=== PATIENT | male | born 1980 | race Caucasian/White ===

== ENCOUNTER 2018-12-16 21:46 | Inpatient (IN) | payer SELFPAY ==
--- NOTE | 2018-12-16 22:21 | ED ---
Medical Screening - HPI Summary HPI Summary: Patient brought 941 by PD for rambling speech and flight of ideas. Patient has been sought by police for stalking females students on [facility] 2 weeks. Patient is homeless, living in vehicle. Patient is alert and oriented. Denies any symptoms of illness, injury or pain. Denies medical history. Denies EtOH or recreational drug use. - History of Current Complaint Chief Complaint: EDMentalHealth Stated Complaint: 941, MHE PER EMS Time Seen by Provider: 12/16/18 22:11 Severity: moderate PMH/Surg Hx/FS Hx/Imm Hx Endocrine/Hematology History: Denies: Hx Anticoagulant Therapy Cardiovascular History: Denies: Hx Pacemaker/ICD History: Denies: Hx Dialysis Sensory History: Denies: Hx Legally Blind Opthamlomology History: Denies: Hx Legally Blind EENT History: Denies: Hx Deafness Infectious Disease History: Unable to Obtain/Confirm Infectious Disease History: Denies: Traveled Outside the US in Last 30 Days - Family History Known Family History: Positive: Unknown - Social History Alcohol Use: None Hx Substance Use: No Hx Tobacco Use: No Review of Systems Constitutional: Negative Eyes: Negative ENT: Negative Cardiovascular: Negative Respiratory: Negative Gastrointestinal: Negative Genitourinary: Negative Musculoskeletal: Negative Skin: Negative Neurological: Negative Positive: Other All Other Systems Reviewed And Are Negative: Yes Physical Exam Triage Information Reviewed: Yes Vital Signs On Initial Exam: Initial Vitals Temp Pulse Resp BP Pulse Ox 98.3 F 112 17 156/88 96 12/16/18 22:05 12/16/18 22:05 12/16/18 22:05 12/16/18 22:05 12/16/18 22:05 Vital Signs Reviewed: Yes Appearance: Positive: Well-Appearing Skin: Positive: Warm Head/Face: Positive: Normal Head/Face Inspection Eyes: Positive: Normal Neck: Positive: Supple Respiratory/Lung Sounds: Positive: Clear to Auscultation Cardiovascular: Positive: Normal Abdomen Description: Positive: Nontender Musculoskeletal: Positive: Normal Neurological: Positive: Normal Psychiatric: Positive: Other AVPU Assessment: Alert - Roscoe Coma Scale Best Eye Response: 4 - Spontaneous Best Motor Response: 6 - Obeys Commands Best Verbal Response: 5 - Oriented Coma Scale Total: 15 Diagnostics - Vital Signs Vital Signs Temp Pulse Resp BP Pulse Ox 12/16/18 22:05 98.3 F 112 17 156/88 96 - Laboratory Result Diagrams: 12/16/18 22:23 12/16/18 22:23 Lab Statement: Any lab studies that have been ordered have been reviewed, and results considered in the medical decision making process. Course/Dx - Course Course Of Treatment: Patient brought 941 by PD for rambling speech and flight of ideas. Patient has been sought by police for stalking females students on [facility] 2 weeks. Patient is homeless, living in vehicle. Patient is alert and oriented. Denies any symptoms of illness, injury or pain. Denies medical history. Denies EtOH or recreational drug use. Vital signs within normal limits. Potassium 3.2. Labs otherwise unremarkable. Mental health evaluation per Dr. Arias recommends involuntary admission for bipolar disorder. - Diagnoses Provider Diagnoses: Bipolar disorder Discharge - Sign-Out/Discharge Documenting (check all that apply): Patient Departure Patient Received Moderate/Deep Sedation with Procedure: No - Discharge Plan Condition: Fair [facility] [place]: No Primary Care Phys,NOPCP [Primary Care Provider] - - Billing Disposition and Condition Condition: FAIR [place]position[place] [facility] [place]
[2018-12-16 22:27] LABS: Urine Appearance Cloudy; Urine Bacteria Absent (Absent); Urine Bilirubin Negative (Negative); Urine Blood Negative (Negative); Urine Color Amber; Urine Glucose Negative (Negative); Urine Ketones 2+ (Negative); Urine Nitrite Negative (Negative); Urine Protein 2+(100 mg/dL) (Negative); Urine Red Blood Cell 1+(3-5/hpf) (Absent); Urine Specific Gravity 1.031 (1.010-1.030); Urine Urobilinogen Positive (Negative); Urine White Blood Cell Trace(0-5/hpf) (Absent)
[2018-12-16 22:30] LABS: ABS Basophils 0.1 10^3/ul (0-0.2); ABS Eosinophils 0.3 10^3/ul (0-0.6); ABS Lymphocytes 1.8 10^3/ul (1.0-4.8); ABS Monocytes 0.6 10^3/ul (0-0.8); Hematocrit 43 % (42-52); Hemoglobin 14.9 g/dL (14.0-18.0); Mean Corpuscular HGB Conc 35 g/dL (31-36); Mean Corpuscular Hemoglobin 29 pg (27-31); Mean Corpuscular Volume 84 fL (80-94); Mean Platelet Volume 10.6 fL (7.4-10.4); Platelet Count 223 10^3/uL (150-450); Red Blood Count 5.11 10^6 /uL (4.18-5.48); Red Cell Distribution Width 14 % (10-15); White Blood Count 5.8 10^3/uL (3.5-10.8)
[2018-12-16 22:41] LABS: Urine Benzodiazepine Screen None Detected (None Detect); Urine Opiates Screen None Detected (None Detect)
[2018-12-16 22:46] LABS: ALT 17 U/L (7-52); AST 27 U/L (13-39); Albumin 4.8 g/dL (3.2-5.2); Albumin/Globulin Ratio 1.8 (1-3); Alkaline Phosphatase 78 U/L (34-104); Anion Gap 13 mmol/L (2-11); BUN/Creatinine Ratio 10.5 (8-20); Blood Urea Nitrogen 10 mg/dL (6-24); CO2 Carbon Dioxide 25 mmol/L (22-32); Calcium 9.7 mg/dL (8.6-10.3); Chloride 100 mmol/L (101-111); EGFR African American 107.9 (>60); EGFR Non-African American 89.2 (>60); Globulin 2.7 g/dL (2-4); Glucose 123 mg/dL (70-100); Potassium 3.2 mmol/L (3.5-5.0); Sodium 138 mmol/L (135-145); Total Protein 7.5 g/dL (6.4-8.9)
[2018-12-16 22:52] LABS: Acetaminophen < 15 mcg/mL; Alcohol < 10 mg/dL (<10); Salicylate < 2.50 mg/dL (<30)
[2018-12-16 22:58] LABS: Eosinophil % 4.5 %; Lymphocyte % 32.1 %; Nucleated Red Blood Cells % 0.1
[2018-12-16 23:06] LABS: TSH (Thyroid Stimulating Horm) 2.63 mcIU/mL (0.34-5.60)
[2018-12-16] MEDS ORDERED: Potassium Chlor TAB* 20 MEQ TAB.ER PO ONE (23:27)
[2018-12-17] MEDS ORDERED: Acetaminophen TAB* 325 MG PO PRN (04:20)
[2018-12-17] MEDS ORDERED: Al Hydrox/Mg Hydrox/Simet LIQ* 30 ML UDC PO PRN (04:21)
[2018-12-17] MEDS: Multivitamins/Minerals TAB PO SCH (09:20)
--- NOTE | 2018-12-17 15:45 | HP ---
HISTORY AND PHYSICAL: DATE OF ADMISSION: 12/17/18 PROVIDER: Vikki Stoddard NP, in Psychiatry. SUPERVISING PHYSICIAN: Gustavo Pabon MD * (DICTATED BY VIKKI STODDARD NP) JUSTIFICATION FOR ADMISSION: The patient is in need of 24-hour supervision and care secondary to gross disorganization. CHIEF COMPLAINT: "I've been touring the [employer]. I'm trying to find a PhD program I can sink my teeth into." HISTORY OF PRESENT ILLNESS: The patient is a 38-year-old single white male with some psychiatric history that he is not forthcoming about who arrives brought in by law enforcement and is here on a 9.39 status after accusations of stalking and delusional thoughts of grandeur, hyperreligiosity, and hypersexuality. Junior states he has been in [place] since September. 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 He states his next stop is [facility] and then the [facility]. He would really like to leave the hospital and leave [place] as he understands he is not wanted at [employer]. He believes that he had a beer at [employer] and he does not understand why he was chased after to get him to leave [employer] and then arrested and brought here. Junior is very focused on his education. He states he went to a university in [place], perhaps [employer], where he got his undergraduate degree in finance. He states he then went to [employer] where he took 2 semesters' worth of courses and then went to [employer] where he took 3 days' worth of courses. 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 He has lately been sleeping in his car and spending a good part of his time reading. He states he is interested in medical topics as well as science and engineering. He asserts he has master's degrees and a PhD, but cannot say from where or what they are in. Junior is clearly delusional. He has no insight into his reason for being here and he is considering filing a court request to stop him from being kept here at the hospital. PAST PSYCHIATRIC HISTORY: There is no evidence available that he has been admitted before or where he might have been admitted. It appears that he travels quite a bit. There is a doctor, Dr. Chavarria in [facility], who is a psychiatrist that he has been seeing, but he does not say for what reason. It sounded as though he believes it is for psychological testing. He denies having ever been on psychiatric medications. He denies ever needing them. PAST MEDICAL HISTORY: He denies ever having had any problems. He does on his right hand appear to have eczema or some kind of psoriasis or healing castro that he says he got as a cook seafood, which is another one of the part-time jobs he mentions. FAMILY HISTORY: He states there is no family history of mental illness in his family. His father, he states, has a problem with alcohol. SUBSTANCE ABUSE HISTORY: It is not clear what substances he might be taking. His laboratory toxicology screen is negative. SOCIAL HISTORY: He is from [place]. He has 2 brothers. He has an apartment in [place]. He says he also has office space there. He is unclear about what his education is. 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 His education experiences appear to be delusional, although he does have a good vocabulary and appears to be an intelligent person. His employment history is unclear. 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 REVIEW OF SYSTEMS: The patient reports feeling alert. He denies shortness of breath, heat or cold intolerance, chest pain or abdominal pain. He denies neurological symptoms. He denies fevers or changes in weight. PHYSICAL EXAMINATION APPEARANCE: Well appearing. VITAL SIGNS: On 12/17/18 at 10:49, temperature was 98.4, pulse 95, respirations 16, O2 sat on room air is 99%, blood pressure is 123/85. HEENT: Head and face: Normal head and face inspection. Eyes: Normal. NECK: Supple. RESPIRATORY: Lung sounds clear to auscultation. CARDIOVASCULAR: Normal. ABDOMEN DESCRIPTION: Nontender. MUSCULOSKELETAL: Normal. NEUROLOGICAL: Normal. PSYCHIATRIC: Paranoid. SKIN: Warm. LABORATORY DATA: Most laboratory data are within normal limits. Exceptions include MPV high at 10.6, potassium low at 3.2, chloride low at 100, anion gap high at 13, glucose high at 123, total bilirubin 1.70. Urine appears to be quite concentrated with a urine specific gravity of 1.031, protein present at 2+ , ketones present at 2+, urobilinogen positive, urine rbc's positive at +1, hyaline casts present. Toxicology screen is negative. MENTAL STATUS EXAMINATION: Junior is 5 feet 10 inches tall. He weighs 170 pounds. He has short hair and blue eyes and is wearing his own clothes including a sleeveless green T-shirt. He is quite stiff in posture. His eye contact is intense. He is cooperative and outwardly calm. He does appear to be hypervigilant about his own behavior. His speech is of normal rate and volume. His tone is vaguely hostile. He has some pressured speech. He is euthymic. His affect is constricted. His thought processes are rapid with flight of ideas. His thought content contains delusions of religiosity, sexuality, and grandeur. He is neither homicidal nor suicidal, he states. He does not endorse hallucinations. His insight is very poor. His judgment is fair. He is alert and oriented x4. DIAGNOSES: 1. Delusional disorder. 2. Rule out shaka with psychotic features. IMPRESSION: Junior is a 38-year-old man who comes to the hospital by law enforcement and is here on an involuntary status following bizarre behavior at [employer] where he was asked to leave and then police were called and he was taken away. PLAN: The patient is being admitted to the adult behavioral health unit and placed on q.15-minute checks for his own safety. The patient is encouraged to participate in supportive milieu, individual and group therapies. Estimated length of stay is 5 to 7 days. We did ask him for an MMPI for diagnostic clarification and he declined. I will offer him psychological testing with Dr. Flower as well. We will offer him medications, such as Zyprexa ODT. At this point, he does not want medications and does state that he does not need them. Discharge planning will likely include family involvement, and hopefully we will find his outpatient providers. VIKKI STODDARD, DIRECTOR AUTOMOTIVE [id number]/[facility] #: [id number] [id number]
[2018-12-18] MEDS: Multivitamins/Minerals TAB PO SCH (09:00)
[2018-12-18] MEDS: OLANzapine TAB*ODT* 10 MG TAB PO SCH ×2 (11:41→21:41)
--- NOTE | 2018-12-18 15:45 | PN ---
Subjective - Subjective Date of Service: 12/18/18 Service Type: 96796 Hosp care 25 min moderate complexity Subjective: Cindy is currently living out of his car since September in [place] and is currently diagnosed with delusional disorder with a rule out of bipolar 1 disorder current episode manic. He came to the hospital from [place] [employer] who had been looking for him for at least a week related to his being a nuisance and related to strange behavior. He is now unwelcome on the campus. He is confirmed to never have been enrolled in any program of any type at [place]. He was felt to be potentially dangerous by [place] [employer]. 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 I have ordered Zyprexa 10 mg ODT BID for him. He has so far declined to take medication. He has met with Julia Hein yesterday, but calls her your in-house atka; he did eventually enter a court request. He would like to have a physician as his prescriber. I allowed him to use the computer today to get information about who he is. He does not have his phone and it doesn't have minutes, so he could not confirm his identity to [place] and therefore could not use his email to get names and information. Also, his backpack was not present, so he could not get his "Rolodex." Objective - General Observations Appearance: Neat, Well Groomed Stature: Overweight Posture: WNL Eye Contact: Intense Behavior/Activity: Accelerated - Interaction Observations Attitude Towards Examiner: Uncooperative, Defensive, Mistrustful, Dismissive Stated Mood: Euthymic, Anxious Affect: Blunted Speech Pattern/Tone: Clear Thought Process: Goal Directed, Circumstantial, Racing Perception: WNL Thought Content: Paranoid, Grandiose Hallucination Type: Denies Delusion Type: Denies, Reference, Grandeur - Cognitive Function Orientation: A&O x 4 Level of Consciousness: Awake, Alert Cognition: Impaired Memory, Impaired Attention/Concentration, Impaired Ability to Abstract Estimated Intelligence: Normal Insight: Difficulty Acknowledging Presence of Psyciatric Problems Judgment Within Normal Limits: No Ability to Make Reasonable Decisions: Serverely Impaired - Medication Compliance Cooperative with Inpatient Medication Regimen: No - Group Participation Participates in Group Activities: Partial Assessment - Assessment Merits Inpatient Hospitalization: For Immediate Safety Inpatient DSM-V Dx: F22 Clinical Impression: Cindy Albert, 38, single, white male is currently living out of his car since September in [place] and is currently diagnosed with delusional disorder with a rule out of bipolar 1 disorder current episode manic. He came to the hospital from [place] [employer] who had been looking for him for at least a week related to his being a nuisance and related to strange behavior. He is now unwelcome on the campus, having been told by the police that he is persona non grata. He is confirmed to never have been enrolled in any program of any type at [facility]. Plan - Plan Treatment Plan: Name: CINDY ALBERT Birthdate: 1980 [id number] Continue to offer Zyprexa ODT 10 mg BID Prepare for treatment over objection, 2PC status, possibly retention Continued Medication Management: Different Medication Medications: Current Medications Acetaminophen (Tylenol Tab*) 650 mg PO Q4H PRN PRN Reason: PAIN; OR TEMP >101 Al Hydrox/Mg Hydrox/Simethicone (Maalox Plus*) 30 ml PO Q4H PRN PRN Reason: INDIGESTION Multivitamins/Minerals (Theragran/Minerals Tab*) 1 tab PO DAILY [facility] Last Admin: 12/18/18 09:00 Dose: Not Given Olanzapine (Zyprexa *Odt*) 10 mg PO BID [facility] Last Admin: 12/18/18 11:41 Dose: Not Given
[2018-12-19] MEDS: OLANzapine TAB*ODT* 10 MG TAB PO SCH ×2 (08:03→19:45)
[2018-12-19] MEDS: Multivitamins/Minerals TAB PO SCH (08:03)
--- NOTE | 2018-12-19 14:48 | PN ---
Subjective - Subjective Date of Service: 12/19/18 Service Type: [id number] Hosp care 15 min low complexity Subjective: I found Bill in bed, fully and neatly dressed. I introduced myself as Dr Elena. He reported he had a court hearing next week. He declined to sit and talk with me. He denied any acute safety concerns, reporting "I'm just fine." Objective - General Observations Appearance: Neat Appears Stated Age: Yes Stature: WNL Posture: WNL Eye Contact: Average Behavior/Activity: Peculiar - Interaction Observations Attitude Towards Examiner: Evasive Stated Mood: Euthymic Speech Pattern/Tone: Clear, Normal Volume - Cognitive Function Level of Consciousness: Awake, Alert - Medication Compliance Cooperative with Inpatient Medication Regimen: No - Group Participation Participates in Group Activities: No Assessment - Assessment Merits Inpatient Hospitalization: For Immediate Safety, For Stabilization, To Initiate Treatment, For Discharge Planning, Pending Safe DC Plan Inpatient DSM-V Dx: F22 Clinical Impression: Cindy Albert, 38, single, white male is currently living out of his car since September in [place] and is currently diagnosed with delusional disorder with a rule out of bipolar 1 disorder current episode manic. He came to the hospital from [place] [employer] who had been looking for him for at least a week related to his being a nuisance and related to strange behavior. He is now unwelcome on the campus, having been told by the police that he is persona non grata. He is confirmed to never have been enrolled in any program of any type at [facility]. Plan - Plan Treatment Plan: Name: ICNDY ALBERT Birthdate: 1980 [id number] Continue to offer Zyprexa ODT 10 mg BID Prepare for treatment over objection, 2PC status, possibly retention Medications: Current Medications Acetaminophen (Tylenol Tab*) 650 mg PO Q4H PRN PRN Reason: PAIN; OR TEMP >101 Al Hydrox/Mg Hydrox/Simethicone (Maalox Plus*) 30 ml PO Q4H PRN PRN Reason: INDIGESTION Multivitamins/Minerals (Theragran/Minerals Tab*) 1 tab PO DAILY [facility] Last Admin: 12/19/18 08:03 Dose: Not Given Olanzapine (Zyprexa *Odt*) 10 mg PO BID [facility] Last Admin: 08/03/19 08:03 Dose: Not Given - Discharge Plan Discharge Plan: Outpatient Follow Up
[2018-12-20] MEDS: OLANzapine TAB*ODT* 10 MG TAB PO SCH ×2 (09:07→21:50)
[2018-12-20] MEDS: Multivitamins/Minerals TAB PO SCH (09:07)
[2018-12-21] MEDS: OLANzapine TAB*ODT* 10 MG TAB PO SCH ×2 (09:30→21:01)
[2018-12-21] MEDS: Multivitamins/Minerals TAB PO SCH (09:30)
--- NOTE | 2018-12-21 16:10 | PN ---
Subjective - Subjective Date of Service: 12/21/18 Service Type: 07708 Hosp care 15 min low complexity Subjective: I meet Cindy in his room. He requests a supervisor public health nursing and would like his due process to commence. I informed him that he would not receive a supervisor public health nursing as he was not involved in a criminal proceeding. I did show him where to get Julia Hein's number and that he had already spoken to her but was welcome to call at any time. Objective - General Observations Appearance: Neat Appears Stated Age: Yes Stature: WNL Posture: WNL Eye Contact: Intermittent Behavior/Activity: Peculiar - Interaction Observations Attitude Towards Examiner: Anxious, Dismissive Stated Mood: Dysphoric, Anxious Affect: Restricted Speech Pattern/Tone: Clear Thought Process: Coherent, Loose Associations, Racing Perception: WNL Thought Content: Obsessional, Paranoid, Grandiose Thought Process: Lethality: Paranoid Ideation Hallucination Type: Denies Delusion Type: Denies, Reference, Grandeur - Cognitive Function Orientation: A&O x 4 Level of Consciousness: Awake, Alert, Appropriate Cognition: WNL, Impaired Ability to Abstract Estimated Intelligence: Normal Insight: Difficulty Acknowledging Presence of Psyciatric Problems Judgment Within Normal Limits: No Ability to Make Reasonable Decisions: Serverely Impaired - Medication Compliance Cooperative with Inpatient Medication Regimen: No - Group Participation Participates in Group Activities: No Assessment - Assessment Merits Inpatient Hospitalization: For Immediate Safety Inpatient DSM-V Dx: F22 Clinical Impression: Cindy Albert, 38, single, white male is currently living out of his car since September in [place] and is currently diagnosed with delusional disorder with a rule out of bipolar 1 disorder current episode manic. He came to the hospital from [place] [employer] who had been looking for him for at least a week related to his being a nuisance and related to strange behavior. He is now unwelcome on the campus, having been told by the police that he is persona non grata. He is confirmed to never have been enrolled in any program of any type at [place]. Plan - Plan Treatment Plan: Name: CINDY ALBERT Birthdate: 1980 [id number] Continue to offer Zyprexa ODT 10 mg BID Prepare for treatment over objection, 2PC status, possibly retention 12/21/18 Switch from Zyprexa to Invega in preparation for injectable antipsychotic Sustenna Prepare for court (Friday12/23/18 at 2 pm) Continued Medication Management: Different Medication Medications: Current Medications Acetaminophen (Tylenol Tab*) 650 mg PO Q4H PRN PRN Reason: PAIN; OR TEMP >101 Al Hydrox/Mg Hydrox/Simethicone (Maalox Plus*) 30 ml PO Q4H PRN PRN Reason: INDIGESTION Multivitamins/Minerals (Theragran/Minerals Tab*) 1 tab PO DAILY [facility] Last Admin: 12/21/18 09:30 Dose: Not Given Olanzapine (Zyprexa *Odt*) 10 mg PO BID [facility] Last Admin: 12/21/18 09:30 Dose: Not Given
[2018-12-22] MEDS: Multivitamins/Minerals TAB PO SCH (11:55)
[2018-12-22] MEDS: OLANzapine TAB*ODT* 10 MG TAB PO SCH ×2 (11:55→21:27)
--- NOTE | 2018-12-22 16:12 | PN ---
Subjective - Subjective Date of Service: 12/22/18 Service Type: [id number] Hosp care 15 min low complexity Subjective: Cindy was quiet today. He ate alone and was curious about how to leave the hospital. His court date is set for tomorrow. Objective - General Observations Appearance: Neat Appears Stated Age: Yes Stature: WNL Posture: WNL Eye Contact: Intermittent Behavior/Activity: Peculiar - Interaction Observations Attitude Towards Examiner: Uncooperative, Anxious, Confused, Defensive Stated Mood: Dysphoric, Anxious Affect: Restricted Speech Pattern/Tone: Clear Thought Process: Goal Directed Perception: WNL Thought Content: Preoccupation/Ruminations, Obsessional, Paranoid Thought Process: Lethality: Paranoid Ideation Hallucination Type: None Delusion Type: Denies, Reference, Grandeur - Cognitive Function Orientation: A&O x 4 Level of Consciousness: Awake, Alert, Appropriate Cognition: Impaired Cognition, Impaired Ability to Abstract, Impaired Fund of Knowledge Estimated Intelligence: Normal Insight: Difficulty Acknowledging Presence of Psyciatric Problems Judgment Within Normal Limits: No Ability to Make Reasonable Decisions: Serverely Impaired - Medication Compliance Cooperative with Inpatient Medication Regimen: No - Group Participation Participates in Group Activities: No Assessment - Assessment Merits Inpatient Hospitalization: For Immediate Safety Inpatient DSM-V Dx: F22 Clinical Impression: Cindy Albert, 38, single, white male is currently living out of his car since September in [place] and is currently diagnosed with delusional disorder with a rule out of bipolar 1 disorder current episode manic. He came to the hospital from [place] [employer] who had been looking for him for at least a week related to his being a nuisance and related to strange behavior. He is now unwelcome on the campus, having been told by the police that he is persona non grata. He is confirmed to never have been enrolled in any program of any type at [facility]. Plan - Plan Treatment Plan: Name: CINDY ALBERT Birthdate: 1980 [id number] Continue to offer Zyprexa ODT 10 mg BID Prepare for treatment over objection, 2PC status, possibly retention 12/21/18 Switch from Zyprexa to Invega in preparation for injectable antipsychotic Sustenna Prepare for court (Friday12/23/18 at 2 pm) 12/22/[address] Continue to pursue appropriate medication. Meet with Dr. Perez for assessment. Continued Medication Management: Different Medication Medications: Current Medications Acetaminophen (Tylenol Tab*) 650 mg PO Q4H PRN PRN Reason: PAIN; OR TEMP >101 Al Hydrox/Mg Hydrox/Simethicone (Maalox Plus*) 30 ml PO Q4H PRN PRN Reason: INDIGESTION Multivitamins/Minerals (Theragran/Minerals Tab*) 1 tab PO DAILY [facility] Last Admin: 12/22/18 11:55 Dose: Not Given Olanzapine (Zyprexa *Odt*) 10 mg PO BID [facility] Last Admin: 12/22/18 11:55 Dose: Not Given
[2018-12-23] MEDS: Multivitamins/Minerals TAB PO SCH (09:26)
[2018-12-23] MEDS: OLANzapine TAB*ODT* 10 MG TAB PO SCH ×2 (09:26→23:08)
--- NOTE | 2018-12-23 11:45 | PN ---
Subjective - Subjective Date of Service: 12/23/18 Service Type: [id number] Hosp care 15 min low complexity Subjective: Cindy's care is taken over today from the NPP, Vikki Stoddard due to his continued refusal to participate in any form of treatment. After introducing myself and describing the nature of this afternoon's court hearing I get to hear his account of the situation leading to his hospitalization. He is clearly guarded and paranoid, giving only brief, uninformative responses to my questions. He insists that he was in fact enrolled as a student at [employer] and "participating in at least three symposia." He denies the account of the [facility] that he was stalking or menacing anyone on campus. 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 He becomes irritable and hyperverbal once confronted on the unlikelihood of these claims. He makes it clear that he will not accept psychiatric medication, although he notably hesitates when asked whether he has been psychiatrically admitted in the past. He refuses to go over the suggested medication list we are submitting to the court for the T.O.O. process. 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...I should be furnished with my own doctor and workers compensation defense attorney." Objective - General Observations Appearance: Disheveled, Malodorous Appears Stated Age: Yes Stature: Short Posture: Tense Eye Contact: Intense Behavior/Activity: Peculiar - Interaction Observations Attitude Towards Examiner: Defensive, Evasive Stated Mood: Dysphoric Affect: Restricted Speech Pattern/Tone: Perseverating Thought Process: Incoherent Thought Content: Paranoid, Grandiose Thought Process: Lethality: Paranoid Ideation Hallucination Type: None Delusion Type: Persecution, Grandeur - Cognitive Function Orientation: A&O x 4 Level of Consciousness: Awake, Alert, Appropriate Cognition: WNL Estimated Intelligence: Normal Insight: Difficulty Acknowledging Presence of Psyciatric Problems Judgment Within Normal Limits: No Ability to Make Reasonable Decisions: Serverely Impaired - Medication Compliance Cooperative with Inpatient Medication Regimen: No - Group Participation Participates in Group Activities: No Assessment - Assessment Merits Inpatient Hospitalization: For Immediate Safety, For Stabilization Inpatient DSM-V Dx: F22 Clinical Impression: Cindy Albert, 38, single, white male is currently living out of his car since September in [place] and is currently diagnosed with delusional disorder with a rule out of bipolar 1 disorder current episode manic. He came to the hospital from [employer] who had been looking for him for at least a week related to his being a nuisance and related to strange behavior. He is now unwelcome on the campus, having been told by the police that he is persona non grata. He is confirmed to never have been enrolled in any program of any type at [employer]. Plan - Plan Treatment Plan: Name: CINDY ALBERT Birthdate: 1980 [id number] Continue to offer Zyprexa ODT 10 mg BID Prepare for treatment over objection, 2PC status, possibly retention 12/21/18 Switch from Zyprexa to Invega in preparation for injectable antipsychotic [place] Prepare for court (Friday12/23/18 at 2 pm) 12/22/[address] Continue to pursue appropriate medication. Meet with Dr. Perez for assessment. Continued Medication Management: Start Medication Medications: Current Medications Acetaminophen (Tylenol Tab*) 650 mg PO Q4H PRN PRN Reason: PAIN; OR TEMP >101 Al Hydrox/Mg Hydrox/Simethicone (Maalox Plus*) 30 ml PO Q4H PRN PRN Reason: INDIGESTION Multivitamins/Minerals (Theragran/Minerals Tab*) 1 tab PO DAILY [facility] Last Admin: 12/23/18 09:26 Dose: Not Given Olanzapine (Zyprexa *Odt*) 10 mg PO BID [facility] Last Admin: 12/23/18 09:26 Dose: Not Given - Discharge Plan Discharge Plan: Inpatient Hospitalization
[2018-12-24] MEDS: Multivitamins/Minerals TAB PO SCH (10:36)
[2018-12-24] MEDS: OLANzapine TAB*ODT* 10 MG TAB PO SCH (10:36)
[2018-12-24] MEDS ORDERED: Haloperidol INJ IV/IM* 5 MG/ML AMP IM PRN (13:16)
[2018-12-24] MEDS: Paliperidone ER TAB* 6 MG TAB.ER PO SCH (13:40)
--- NOTE | 2018-12-24 14:10 | PN ---
Subjective - Subjective Date of Service: 12/24/18 Service Type: 37626 Hosp care 15 min low complexity Subjective: Cindy requests a new psychiatrist today. 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 Yeah, I'm really offended by that. I would like to know where you went to medical school. And I need you to contact [facility] to get a second opinion on a diagnosis." Cindy states that he is allergic to all antipsychotics because they cause sedation, weight gain and skin hives. Ultimately he agrees to an oral dose of 6mg paliperidone while trying to negotiate his way out of the hospital. Social work informs me that they found a letter in his backpack pertaining to a psychiatric leave of absence from [facility] in 2008, however, Cindy refuses to answer any questions about this, stating "Yeah, it' s my HIPAA right not to answer any questions about that unless my private storage center manager is present. Objective - General Observations Appearance: Malodorous, Unkempt Appears Stated Age: No Stature: Short Posture: WNL Eye Contact: Intense Behavior/Activity: Peculiar - Interaction Observations Attitude Towards Examiner: Defensive Stated Mood: Dysphoric Affect: Flat Speech Pattern/Tone: Clear Thought Process: Over Inclusive Thought Content: Paranoid, Grandiose Thought Process: Lethality: Paranoid Ideation Hallucination Type: None Delusion Type: Persecution, Grandeur - Cognitive Function Orientation: A&O x 4 Level of Consciousness: Awake Cognition: WNL Estimated Intelligence: Normal Insight: WNL Judgment Within Normal Limits: Yes - Medication Compliance Cooperative with Inpatient Medication Regimen: No - Group Participation Participates in Group Activities: No Assessment - Assessment Merits Inpatient Hospitalization: For Immediate Safety, For Stabilization Inpatient DSM-V Dx: F22 Clinical Impression: Cindy Albert, 38, single, white male is currently living out of his car since September in [place] and is currently diagnosed with delusional disorder with a rule out of bipolar 1 disorder current episode manic. He came to the hospital from [place] Police who had been looking for him for at least a week related to his being a nuisance and related to strange behavior. He is now unwelcome on the campus, having been told by the police that he is persona non grata. He is confirmed to never have been enrolled in any program of any type at [place]. Plan - Plan Treatment Plan: Name: CINDY ALBERT Birthdate: 1980 [id number] We have initiated paliperidone 6mg PO qday per court order. Will consider SAMUEL version of same compound. Continue inpatient treatment and try to find collateral information that would allow us to discharge plan. Continued Medication Management: Start Medication Medications: Current Medications Acetaminophen (Tylenol Tab*) 650 mg PO Q4H PRN PRN Reason: PAIN; OR TEMP >101 Al Hydrox/Mg Hydrox/Simethicone (Maalox Plus*) 30 ml PO Q4H PRN PRN Reason: INDIGESTION Haloperidol Lactate (Haldol Inj Iv/Im*) 5 mg IM DAILY PRN PRN Reason: if patient refuses invega Multivitamins/Minerals (Theragran/Minerals Tab*) 1 tab PO DAILY [facility] Last Admin: 12/24/18 10:36 Dose: Not Given Paliperidone (Invega Er Tab*) 6 mg PO DAILY [facility] Last Admin: 12/24/18 13:40 Dose: 6 mg - Discharge Plan Discharge Plan: Inpatient Hospitalization
[2018-12-25] MEDS: Paliperidone ER TAB* 6 MG TAB.ER PO SCH (08:55)
[2018-12-25] MEDS: Multivitamins/Minerals TAB PO SCH (08:56)
--- NOTE | 2018-12-25 15:06 | PN ---
Subjective - Subjective Date of Service: 12/25/18 Service Type: 85024 Hosp care 15 min low complexity Subjective: Cindy reports that the medicine is making him "groggy" but he has no other ill effects. He continues to have an odd, flat affect with a stiff posture and intense stare. He reports that he was staying at a youth hostel on the [facility] called the "[facility]" on [facility]. He also says that he has a job at [employer] and has permission to park his car within 200ft of any [employer] in the [place]. 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 Objective - General Observations Appearance: Disheveled Appears Stated Age: No Stature: Short Posture: Rigid, Tense Eye Contact: Intense Behavior/Activity: Peculiar - Interaction Observations Attitude Towards Examiner: Cooperative Stated Mood: Anxious Affect: Flat Speech Pattern/Tone: Clear Thought Process: Coherent Thought Content: Paranoid, Grandiose Thought Process: Lethality: Paranoid Ideation Hallucination Type: None Delusion Type: Persecution, Grandeur - Cognitive Function Orientation: A&O x 4 Level of Consciousness: Awake, Alert Cognition: WNL Estimated Intelligence: Normal Insight: Difficulty Acknowledging Presence of Psyciatric Problems Judgment Within Normal Limits: No Ability to Make Reasonable Decisions: Serverely Impaired - Medication Compliance Cooperative with Inpatient Medication Regimen: Yes - Group Participation Participates in Group Activities: No Assessment - Assessment Merits Inpatient Hospitalization: For Immediate Safety, For Stabilization Inpatient DSM-V Dx: F22 Clinical Impression: Cindy Albert, 38, single, white male is currently living out of his car since September in [place] and is currently diagnosed with delusional disorder with a rule out of bipolar 1 disorder current episode manic. He came to the hospital from [place] [employer] who had been looking for him for at least a week related to his being a nuisance and related to strange behavior. He is now unwelcome on the campus, having been told by the police that he is persona non grata. He is confirmed to never have been enrolled in any program of any type at [place]. Plan - Plan Treatment Plan: Name: CINDY ALBERT Birthdate: 1980 [id number] We have initiated paliperidone 6mg PO qday per court order. Will consider SAMUEL version of same compound. Continue inpatient treatment and try to find collateral information that would allow us to discharge plan. Continued Medication Management: Start Medication Medications: Current Medications Acetaminophen (Tylenol Tab*) 650 mg PO Q4H PRN PRN Reason: PAIN; OR TEMP >101 Al Hydrox/Mg Hydrox/Simethicone (Maalox Plus*) 30 ml PO Q4H PRN PRN Reason: INDIGESTION Haloperidol Lactate (Haldol Inj Iv/Im*) 5 mg IM DAILY PRN PRN Reason: if patient refuses invega Paliperidone (Invega Er Tab*) 6 mg PO DAILY [facility] Last Admin: 12/25/18 08:55 Dose: 6 mg - Discharge Plan Discharge Plan: Inpatient Hospitalization
[2018-12-26] MEDS: Paliperidone ER TAB* 6 MG TAB.ER PO SCH (09:52)
[2018-12-27] MEDS: Paliperidone ER TAB* 6 MG TAB.ER PO SCH (10:43)
[2018-12-28 08:26] LABS: HDL Cholesterol 51.2 mg/dL
[2018-12-28] MEDS: Paliperidone ER TAB* 6 MG TAB.ER PO SCH (10:36)
--- NOTE | 2018-12-28 14:11 | PN ---
Subjective - Subjective Date of Service: 12/28/18 Service Type: [id number] Hosp care 15 min low complexity Subjective: Junior is seen along with inpatient SW Mary Ann Eugenia for follow up. He reports that the medicine makes him a little groggy but he does not seem to be having any further untoward effects. Junior is informed today of the treatment team' s decision to refer him to the [facility] for more intermediate-level inpatient services. He seems to be uncertain of what this entails and needs clarification that it does not involve him being criminally prosecuted. "Well, actually I think I'd rather wait here. I called [facility], which is run by a former professor of law of [facility] [facility]. I'm waiting to hear back from them and I think there's a good chance that they'll just release me from here." CAESAR Bello and I do our best to educate and inform him about his legal options, which would include seeking outside pet adoption counselor. He does not express consent for transfer to a State facility. Staff notes indicate that he remains isolative and uninvolved in unit programming. He still has not given us any collateral contact information for family, nor signed any ROIs for us to speak with them. Objective - General Observations Appearance: Disheveled Appears Stated Age: No Stature: Short Posture: Tense Eye Contact: Average Behavior/Activity: Peculiar - Interaction Observations Attitude Towards Examiner: Defensive Stated Mood: Anxious Affect: Flat Speech Pattern/Tone: Clear Thought Process: Circumstantial Perception: WNL Thought Content: Paranoid, Grandiose Thought Process: Lethality: Paranoid Ideation Hallucination Type: None Delusion Type: Persecution, Grandeur - Cognitive Function Orientation: A&O x 4 Level of Consciousness: Awake, Alert, Appropriate Cognition: WNL Estimated Intelligence: Normal Insight: Difficulty Acknowledging Presence of Psyciatric Problems Judgment Within Normal Limits: No Ability to Make Reasonable Decisions: Serverely Impaired - Medication Compliance Cooperative with Inpatient Medication Regimen: Yes - Group Participation Participates in Group Activities: No Assessment - Assessment Merits Inpatient Hospitalization: For Immediate Safety, For Stabilization Inpatient DSM-V Dx: F22 Clinical Impression: Junior Albert, 38, single, white male is currently living out of his car since September in [place] and is currently diagnosed with delusional disorder with a rule out of bipolar 1 disorder current episode manic. He came to the hospital from [place] who had been looking for him for at least a week related to his being a nuisance and related to strange behavior. He is now unwelcome on the campus, having been told by the police that he is persona non grata. He is confirmed to never have been enrolled in any program of any type at [place]. BSU: Problem List - Patient Problems (1) Delusional disorder Current Visit: Yes Status: Acute Priority: High Code(s): F22 - DELUSIONAL DISORDERS SNOMED Code(s): 51313726 Plan - Plan Treatment Plan: Name: JUNIOR ALBERT Birthdate: 1980 [id number] We have initiated paliperidone 6mg PO qday per court order. Will consider SAMUEL version of same compound. Continue inpatient treatment and try to find collateral information that would allow us to discharge plan. Will initiate referral to [facility]. Continued Medication Management: Start Medication Medications: Current Medications Acetaminophen (Tylenol Tab*) 650 mg PO Q4H PRN PRN Reason: PAIN; OR TEMP >101 Al Hydrox/Mg Hydrox/Simethicone (Maalox Plus*) 30 ml PO Q4H PRN PRN Reason: INDIGESTION Haloperidol Lactate (Haldol Inj Iv/Im*) 5 mg IM DAILY PRN PRN Reason: if patient refuses invega Paliperidone (Invega Er Tab*) 6 mg PO DAILY [facility] Last Admin: 12/28/18 10:36 Dose: 6 mg - Discharge Plan Discharge Plan: Consider Longer Term Tx Lab Results - Lab Results Lab Results: 12/28/18 12/28/18 07:38 07:38 Hemoglobin A1c 5.4 Triglycerides 249 Cholesterol 285 LDL Cholesterol 184 HDL Cholesterol 51.2
[2018-12-29] MEDS: Paliperidone ER TAB* 6 MG TAB.ER PO SCH (09:49)
[2018-12-30] MEDS: Paliperidone ER TAB* 6 MG TAB.ER PO SCH (10:00)
--- NOTE | 2018-12-30 13:10 | PN ---
Subjective - Subjective Date of Service: 12/30/18 Service Type: 74411 Hosp care 15 min low complexity Subjective: Cindy is delusional with stiff, tense posture and an intense, yet vacant, stare. "Yeah, I don't really believe that the [facility] in [place] is necessary. I feel like you guys are really trying to get me to go to [employer] and I'm not really interested in that school." Cindy has been trying to contact various law school faculty at [facility] and hoping they will legally intervene by getting him out of the hospital. He is adherent with oral Invega and seems to be tolerating it well. Objective - General Observations Appearance: Unkempt Appears Stated Age: Yes Stature: Short Posture: Tense Eye Contact: Intense Behavior/Activity: Peculiar - Interaction Observations Attitude Towards Examiner: Cooperative Stated Mood: Anxious Affect: Flat Speech Pattern/Tone: Rambling Thought Process: Tangential Perception: WNL Thought Content: Paranoid, Grandiose Thought Process: Lethality: Paranoid Ideation Hallucination Type: None Delusion Type: Grandeur, Lutheran - Cognitive Function Orientation: A&O x 4 Level of Consciousness: Awake Cognition: WNL Estimated Intelligence: Normal Insight: Difficulty Acknowledging Presence of Psyciatric Problems Judgment Within Normal Limits: No Ability to Make Reasonable Decisions: Serverely Impaired - Medication Compliance Cooperative with Inpatient Medication Regimen: Yes - Group Participation Participates in Group Activities: No Assessment - Assessment Merits Inpatient Hospitalization: For Immediate Safety, For Stabilization Inpatient DSM-V Dx: F22 Clinical Impression: Cindy Albert, 38, single, white male is currently living out of his car since September in [place] and is currently diagnosed with delusional disorder with a rule out of bipolar 1 disorder current episode manic. He came to the hospital from [place] [employer] who had been looking for him for at least a week related to his being a nuisance and related to strange behavior. He is now unwelcome on the campus, having been told by the police that he is persona non grata. He is confirmed to never have been enrolled in any program of any type at [place]. Plan - Plan Treatment Plan: Name: CINDY ALBERT Birthdate: 1980 [id number] We have initiated paliperidone 6mg PO qday per court order. Will consider SAMUEL version of same compound. Continue inpatient treatment and try to find collateral information that would allow us to discharge plan. Will initiate referral to [facility]. Continued Medication Management: Start Medication Medications: Current Medications Acetaminophen (Tylenol Tab*) 650 mg PO Q4H PRN PRN Reason: PAIN; OR TEMP >101 Al Hydrox/Mg Hydrox/Simethicone (Maalox Plus*) 30 ml PO Q4H PRN PRN Reason: INDIGESTION Haloperidol Lactate (Haldol Inj Iv/Im*) 5 mg IM DAILY PRN PRN Reason: if patient refuses invega Paliperidone (Invega Er Tab*) 6 mg PO DAILY [facility] Last Admin: 12/30/18 10:00 Dose: 6 mg - Discharge Plan Discharge Plan: Consider Longer Term Tx Lab Results - Lab Results Lab Results: 12/28/18 12/28/18 07:38 07:38 Hemoglobin A1c 5.4 Triglycerides 249 Cholesterol 285 LDL Cholesterol 184 HDL Cholesterol 51.2
[2018-12-31] MEDS: Paliperidone ER TAB* 6 MG TAB.ER PO SCH (10:30)
--- NOTE | 2018-12-31 14:46 | PN ---
BSU: Group Therapy Note - Service Type Service Type: [id number] Group Psychotherapy - Group Participation Patient Participating in Group: Yes Level of Group Participation: Attentive, Participates When Prompte Relatedness to Group: Defended - Additional Group Comments Group Comments: Will was very attentive throughout the group. Toward the end, when the content became more diffuse, he remained focused and interested and expressed interest verbally rather than simply by appearing to be attentive.
[2019-01-01] MEDS: Paliperidone ER TAB* 6 MG TAB.ER PO SCH (10:47)
--- NOTE | 2019-01-01 14:16 | PN ---
Subjective - Subjective Date of Service: 01/01/19 Service Type: 88512 Hosp care 15 min low complexity Subjective: Cindy remains delusional. He's reached out to multiple different attorneys and old faculty members at various colleges to secure legal assistance for his pending court date next Friday (01/05) for retention. He is taking the medication but remains isolative and guarded about giving us contact information for collateral information sources. Objective - General Observations Appearance: Neat Appears Stated Age: Yes Stature: Short Posture: Rigid Eye Contact: Intense Behavior/Activity: Peculiar - Interaction Observations Attitude Towards Examiner: Defensive Stated Mood: Anxious Affect: Flat Speech Pattern/Tone: Rambling Thought Process: Tangential Thought Content: Paranoid, Grandiose Thought Process: Lethality: Paranoid Ideation Hallucination Type: None Delusion Type: Persecution, Grandeur - Cognitive Function Orientation: A&O x 4 Level of Consciousness: Awake Cognition: WNL Estimated Intelligence: Normal Insight: Difficulty Acknowledging Presence of Psyciatric Problems Judgment Within Normal Limits: No Ability to Make Reasonable Decisions: Serverely Impaired - Medication Compliance Cooperative with Inpatient Medication Regimen: Yes - Group Participation Participates in Group Activities: No Assessment - Assessment Merits Inpatient Hospitalization: For Immediate Safety, For Stabilization Inpatient DSM-V Dx: F22 Clinical Impression: Cindy Albert, 38, single, white male is currently living out of his car since September in [place] and is currently diagnosed with delusional disorder with a rule out of bipolar 1 disorder current episode manic. He came to the hospital from [place] [employer] who had been looking for him for at least a week related to his being a nuisance and related to strange behavior. He is now unwelcome on the campus, having been told by the police that he is persona non grata. He is confirmed to never have been enrolled in any program of any type at [place]. Plan - Plan Treatment Plan: Name: CINDY ALBERT Birthdate: 1980 [id number] We have initiated paliperidone 6mg PO qday per court order. Will consider SAMUEL version of same compound. Continue inpatient treatment and try to find collateral information that would allow us to discharge plan. Will initiate referral to [facility]. Continued Medication Management: Start Medication Medications: Current Medications Acetaminophen (Tylenol Tab*) 650 mg PO Q4H PRN PRN Reason: PAIN; OR TEMP >101 Al Hydrox/Mg Hydrox/Simethicone (Maalox Plus*) 30 ml PO Q4H PRN PRN Reason: INDIGESTION Haloperidol Lactate (Haldol Inj Iv/Im*) 5 mg IM DAILY PRN PRN Reason: if patient refuses invega Paliperidone (Invega Er Tab*) 6 mg PO DAILY [facility] Last Admin: 01/01/19 10:47 Dose: 6 mg - Discharge Plan Discharge Plan: Consider Longer Term Tx
[2019-01-02] MEDS: Paliperidone ER TAB* 6 MG TAB.ER PO SCH (09:48)
[2019-01-03] MEDS: Paliperidone ER TAB* 6 MG TAB.ER PO SCH (11:08)
[2019-01-04] MEDS: Paliperidone ER TAB* 6 MG TAB.ER PO SCH (09:55)
--- NOTE | 2019-01-04 11:34 | PN ---
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 He is still unable to participate in any meaningful dialogue related to discharge planning. He appears to be tolerating medication well. Objective - General Observations Appearance: Neat Appears Stated Age: No Stature: Short Posture: WNL Eye Contact: Intense Behavior/Activity: Peculiar - Interaction Observations Attitude Towards Examiner: Evasive Stated Mood: Anxious Affect: Flat Speech Pattern/Tone: Clear Thought Process: Tangential Perception: WNL Thought Content: Paranoid, Grandiose Thought Process: Lethality: Paranoid Ideation Hallucination Type: None Delusion Type: Persecution, Grandeur - Cognitive Function Orientation: A&O x 4 Level of Consciousness: Awake Cognition: WNL Estimated Intelligence: Normal Insight: Difficulty Acknowledging Presence of Psyciatric Problems Judgment Within Normal Limits: No Ability to Make Reasonable Decisions: Serverely Impaired - Medication Compliance Cooperative with Inpatient Medication Regimen: Yes - Group Participation Participates in Group Activities: No Assessment - Assessment Merits Inpatient Hospitalization: For Immediate Safety, For Stabilization Inpatient DSM-V Dx: F22 Clinical Impression: Cindy Albert, 38, single, white male is currently living out of his car since September in [place] and is currently diagnosed with delusional disorder with a rule out of bipolar 1 disorder current episode manic. He came to the hospital from [place] [employer] who had been looking for him for at least a week related to his being a nuisance and related to strange behavior. He is now unwelcome on the campus, having been told by the police that he is persona non grata. He is confirmed to never have been enrolled in any program of any type at [place]. Plan - Plan Treatment Plan: Name: CINDY ALBERT Birthdate: 1980 [id number] We have initiated paliperidone 6mg PO qday per court order. Will consider SAMUEL version of same compound. Continue inpatient treatment and try to find collateral information that would allow us to discharge plan. Will initiate referral to [facility]. Continued Medication Management: Start Medication Medications: Current Medications Acetaminophen (Tylenol Tab*) 650 mg PO Q4H PRN PRN Reason: PAIN; OR TEMP >101 Al Hydrox/Mg Hydrox/Simethicone (Maalox Plus*) 30 ml PO Q4H PRN PRN Reason: INDIGESTION Haloperidol Lactate (Haldol Inj Iv/Im*) 5 mg IM DAILY PRN PRN Reason: if patient refuses invega Paliperidone (Invega Er Tab*) 6 mg PO DAILY BRITNI Last Admin: 01/04/19 09:55 Dose: 6 mg - Discharge Plan Discharge Plan: Consider Longer Term Tx
[2019-01-05] MEDS: Paliperidone ER TAB* 6 MG TAB.ER PO SCH (09:21)
[2019-01-06] MEDS: Paliperidone ER TAB* 6 MG TAB.ER PO SCH (09:43)
--- NOTE | 2019-01-06 11:11 | PN ---
Subjective - Subjective Date of Service: 01/06/19 Service Type: 71066 Hosp care 15 min low complexity Subjective: Cindy is in group today. He denies any contact with his family, saying that he's close to 41 years old and doesn't feel any obligations to stay connected to either of his brothers or his parents, all of whom still reside in [place] as far as he knows. He claims to not know their contact information. He still complains of "grogginess" with paliperidone, however, he denies any other untoward effects. Objective - General Observations Appearance: Well Groomed Appears Stated Age: Yes Stature: Short Posture: Tense Eye Contact: Average Behavior/Activity: Peculiar - Interaction Observations Attitude Towards Examiner: Cooperative Stated Mood: Euthymic Affect: Flat Speech Pattern/Tone: Clear, Appropriate, Normal Volume Thought Process: Tangential Perception: WNL Thought Content: Paranoid, Grandiose Thought Process: Lethality: Paranoid Ideation Hallucination Type: None Delusion Type: Persecution, Grandeur - Cognitive Function Orientation: A&O x 4 Level of Consciousness: Awake Cognition: WNL Estimated Intelligence: Normal Insight: Difficulty Acknowledging Presence of Psyciatric Problems Judgment Within Normal Limits: No Ability to Make Reasonable Decisions: Serverely Impaired - Medication Compliance Cooperative with Inpatient Medication Regimen: Yes - Group Participation Participates in Group Activities: Partial Assessment - Assessment Merits Inpatient Hospitalization: For Immediate Safety, For Stabilization Inpatient DSM-V Dx: F22 Clinical Impression: Cindy Albert, 38, single, white male is currently living out of his car since September in [place] and is currently diagnosed with delusional disorder with a rule out of bipolar 1 disorder current episode manic. He came to the hospital from [place] [employer] who had been looking for him for at least a week related to his being a nuisance and related to strange behavior. He is now unwelcome on the campus, having been told by the police that he is persona non grata. He is confirmed to never have been enrolled in any program of any type at [place]. Plan - Plan Treatment Plan: Name: CINDY ALBERT Birthdate: 1980 [id number] We have initiated paliperidone 6mg PO qday per court order. Will consider SAMUEL version of same compound. Continue inpatient treatment and try to find collateral information that would allow us to commence safe discharge planning. Will initiate referral to [facility]. Continued Medication Management: Start Medication Medications: Current Medications Acetaminophen (Tylenol Tab*) 650 mg PO Q4H PRN PRN Reason: PAIN; OR TEMP >101 Al Hydrox/Mg Hydrox/Simethicone (Maalox Plus*) 30 ml PO Q4H PRN PRN Reason: INDIGESTION Haloperidol Lactate (Haldol Inj Iv/Im*) 5 mg IM DAILY PRN PRN Reason: if patient refuses invega Paliperidone (Invega Er Tab*) 6 mg PO DAILY [facility] Last Admin: 01/06/19 09:43 Dose: 6 mg - Discharge Plan Discharge Plan: Consider Longer Term Tx
--- NOTE | 2019-01-06 16:20 | PN ---
BSU: Group Therapy Note - Service Type Service Type: [id number] Group Psychotherapy - Medication Education group: Patient present and attentive. Presented with flat affect that did not vary with discussion.
[2019-01-07] MEDS: Paliperidone ER TAB* 6 MG TAB.ER PO SCH (09:51)
[2019-01-08] MEDS: Paliperidone ER TAB* 6 MG TAB.ER PO SCH (11:18)
--- NOTE | 2019-01-08 14:12 | PN ---
Subjective - Subjective Date of Service: 01/08/19 Service Type: 33220 Hosp care 15 min low complexity Subjective: Cindy stares vacantly at this observer during rounds. He makes no spontaneous conversation, nor does he endorse any complaints. He remains unable to give me any sources of collateral contact or support that would assist in discharge planning. When asked about paliperidone he will only say that it makes him "groggy." Objective - General Observations Appearance: Well Groomed Appears Stated Age: Yes Stature: Short Posture: Tense Eye Contact: Average Behavior/Activity: Peculiar - Interaction Observations Attitude Towards Examiner: Cooperative Stated Mood: Euthymic Affect: Flat Speech Pattern/Tone: Delayed Thought Process: Circumstantial Perception: WNL Thought Content: Paranoid, Grandiose Thought Process: Lethality: Paranoid Ideation Hallucination Type: None Delusion Type: Persecution, Grandeur - Cognitive Function Orientation: A&O x 4 Level of Consciousness: Awake Cognition: WNL Estimated Intelligence: Normal Insight: Difficulty Acknowledging Presence of Psyciatric Problems Judgment Within Normal Limits: No Ability to Make Reasonable Decisions: Serverely Impaired - Medication Compliance Cooperative with Inpatient Medication Regimen: Yes - Group Participation Participates in Group Activities: No Assessment - Assessment Merits Inpatient Hospitalization: For Immediate Safety, For Stabilization Inpatient DSM-V Dx: F22 Clinical Impression: Cindy Albert, 38, single, white male is currently living out of his car since September in [place] and is currently diagnosed with delusional disorder with a rule out of bipolar 1 disorder current episode manic. He came to the hospital from [place] [employer] who had been looking for him for at least a week related to his being a nuisance and related to strange behavior. He is now unwelcome on the campus, having been told by the police that he is persona non grata. He is confirmed to never have been enrolled in any program of any type at [place]. Plan - Plan Treatment Plan: Name: CINDY ALBERT Birthdate: 1980 [id number] We have initiated paliperidone 6mg PO qday per court order. Will consider SAMUEL version of same compound. Continue inpatient treatment and try to find collateral information that would allow us to commence safe discharge planning. Will initiate referral to [facility]. Continued Medication Management: Start Medication Medications: Current Medications Acetaminophen (Tylenol Tab*) 650 mg PO Q4H PRN PRN Reason: PAIN; OR TEMP >101 Al Hydrox/Mg Hydrox/Simethicone (Maalox Plus*) 30 ml PO Q4H PRN PRN Reason: INDIGESTION Haloperidol Lactate (Haldol Inj Iv/Im*) 5 mg IM DAILY PRN PRN Reason: if patient refuses invega Paliperidone (Invega Er Tab*) 6 mg PO DAILY BRITNI Last Admin: 01/08/19 11:18 Dose: 6 mg - Discharge Plan Discharge Plan: Consider Longer Term Tx
[2019-01-09] MEDS: Paliperidone ER TAB* 6 MG TAB.ER PO SCH (13:09)
[2019-01-10] MEDS: Paliperidone ER TAB* 6 MG TAB.ER PO SCH (10:33)
[2019-01-11] MEDS: Paliperidone ER TAB* 6 MG TAB.ER PO SCH (09:45)
--- NOTE | 2019-01-11 11:57 | PN ---
Subjective - Subjective Date of Service: 01/11/19 Service Type: [id number] Hosp care 15 min low complexity Subjective: Cindy remains delusional and completely without insight. He says "I really don't need to go to the [facility]. I really just need to get back to college so that I can hang out with my colleagues." He denies untoward effects from his paliperidone. He still cannot give us any collateral sources of information which would assist in discharge planning. Staff notes indicate that he continues to respond to internal stimuli at times. Objective - General Observations Appearance: Well Groomed Appears Stated Age: No Stature: Short Posture: Tense Eye Contact: Intense Behavior/Activity: Peculiar - Interaction Observations Attitude Towards Examiner: Defensive Stated Mood: Euthymic Affect: Blunted Speech Pattern/Tone: Clear, Appropriate Thought Process: Tangential Perception: WNL Thought Content: Paranoid, Grandiose Thought Process: Lethality: Paranoid Ideation Hallucination Type: None Delusion Type: Persecution, Grandeur - Cognitive Function Orientation: A&O x 4 Level of Consciousness: Awake, Alert, Appropriate Cognition: WNL Estimated Intelligence: Normal Insight: Difficulty Acknowledging Presence of Psyciatric Problems Judgment Within Normal Limits: Yes Ability to Make Reasonable Decisions: Serverely Impaired - Medication Compliance Cooperative with Inpatient Medication Regimen: Yes - Group Participation Participates in Group Activities: No Assessment - Assessment Merits Inpatient Hospitalization: For Immediate Safety, For Stabilization Inpatient DSM-V Dx: F22 Clinical Impression: Cindy Albert, 38, single, white male is currently living out of his car since September in [place] and is currently diagnosed with delusional disorder with a rule out of bipolar 1 disorder current episode manic. He came to the hospital from [place] [employer] who had been looking for him for at least a week related to his being a nuisance and related to strange behavior. He is now unwelcome on the campus, having been told by the police that he is persona non grata. He is confirmed to never have been enrolled in any program of any type at [place]. Plan - Plan Treatment Plan: Name: CINDY ALBERT Birthdate: 1980 [id number] We have initiated paliperidone 6mg PO qday per court order. Will consider SAMUEL version of same compound. Continue inpatient treatment and try to find collateral information that would allow us to commence safe discharge planning. Will initiate referral to [facility]. Continued Medication Management: Start Medication Medications: Current Medications Acetaminophen (Tylenol Tab*) 650 mg PO Q4H PRN PRN Reason: PAIN; OR TEMP >101 Al Hydrox/Mg Hydrox/Simethicone (Maalox Plus*) 30 ml PO Q4H PRN PRN Reason: INDIGESTION Haloperidol Lactate (Haldol Inj Iv/Im*) 5 mg IM DAILY PRN PRN Reason: if patient refuses invega Paliperidone (Invega Er Tab*) 6 mg PO DAILY BRITNI Last Admin: 01/11/19 09:45 Dose: 6 mg - Discharge Plan Discharge Plan: Consider Longer Term Tx
[2019-01-12] MEDS: Paliperidone ER TAB* 6 MG TAB.ER PO SCH (09:06)
--- NOTE | 2019-01-12 11:21 | PN ---
BSU: Group Therapy Note - Service Type Service Type: [id number] Group Psychotherapy - CBT Group Note: Junior attended cbt programming this morning and was attentive and participatory. He remained in good behavioral control, and expressed thoughts in a clear and coherent fashion , although at one point he stated that people can get into trouble "for not having a car" in reaction to a peer discussing her aversion to driving secondary to ptsd symptoms. 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 He presents with fair affect, but concerns remain regarding insight and judgement.
[2019-01-13] MEDS: Paliperidone ER TAB* 6 MG TAB.ER PO SCH (09:38)
--- NOTE | 2019-01-13 11:23 | PN ---
BSU: Group Therapy Note - Service Type Service Type: [id number] Group Psychotherapy - CBT Group Note: Junior was attentive and participatory in programming, but remains unconcerned with treatment, stating "I'm fine". He remains in good behavioral control, and accepts prompts to attend programming and is responsive to questions in a direct fashion. He does not engage in a spontaneous fashion in regards to his perceptions of treatment or progress.
--- NOTE | 2019-01-13 12:33 | PN ---
Subjective - Subjective Date of Service: 01/13/19 Service Type: 58701 Hosp care 15 min low complexity Subjective: Cindy remains delusional and not able to discharge plan. He believes his car is parked "legally...on the edge of the [facility]." He shows no insight into his mental illness and is not allowing us to contact family. Objective - General Observations Appearance: Well Groomed Appears Stated Age: Yes Stature: Short Posture: Tense Eye Contact: Intense Behavior/Activity: Peculiar - Interaction Observations Attitude Towards Examiner: Cooperative Stated Mood: Euthymic Affect: Blunted Speech Pattern/Tone: Clear Thought Process: Tangential Thought Content: Paranoid, Grandiose Thought Process: Lethality: Paranoid Ideation Hallucination Type: None Delusion Type: Persecution, Grandeur - Cognitive Function Orientation: A&O x 4, Situation Level of Consciousness: Awake Cognition: WNL Estimated Intelligence: Normal Insight: Difficulty Acknowledging Presence of Psyciatric Problems Judgment Within Normal Limits: No Ability to Make Reasonable Decisions: Serverely Impaired - Medication Compliance Cooperative with Inpatient Medication Regimen: Yes - Group Participation Participates in Group Activities: Yes Assessment - Assessment Merits Inpatient Hospitalization: For Immediate Safety, For Stabilization Inpatient DSM-V Dx: F22 Clinical Impression: Cindy Albert, 38, single, white male is currently living out of his car since September in [place] and is currently diagnosed with delusional disorder with a rule out of bipolar 1 disorder current episode manic. He came to the hospital from [place] [employer] who had been looking for him for at least a week related to his being a nuisance and related to strange behavior. He is now unwelcome on the campus, having been told by the police that he is persona non grata. He is confirmed to never have been enrolled in any program of any type at [place]. Plan - Plan Treatment Plan: Name: CINDY ALBERT Birthdate: 1980 [id number] We have initiated paliperidone 6mg PO qday per court order. Will consider SAMUEL version of same compound. Continue inpatient treatment and try to find collateral information that would allow us to commence safe discharge planning. Will initiate referral to [facility]. Continued Medication Management: Start Medication Medications: Current Medications Acetaminophen (Tylenol Tab*) 650 mg PO Q4H PRN PRN Reason: PAIN; OR TEMP >101 Al Hydrox/Mg Hydrox/Simethicone (Maalox Plus*) 30 ml PO Q4H PRN PRN Reason: INDIGESTION Haloperidol Lactate (Haldol Inj Iv/Im*) 5 mg IM DAILY PRN PRN Reason: if patient refuses invega Paliperidone (Invega Er Tab*) 6 mg PO DAILY BRITNI Last Admin: 01/13/19 09:38 Dose: 6 mg - Discharge Plan Discharge Plan: Consider Longer Term Tx
[2019-01-14] MEDS: Paliperidone ER TAB* 6 MG TAB.ER PO SCH (10:24)
--- NOTE | 2019-01-15 11:40 | PN ---
BSU: Group Therapy Note - Service Type Service Type: [id number] Group Psychotherapy - CBT Group Note: Junior was attentive in cbt programming this morning. He did not spontaneosly engage in discussion, but reponds to prompts briefly. He described wishing to be discharged, with plans to travel to [place] and then [place] before returning to [place] in March.
--- NOTE | 2019-01-15 12:33 | PN ---
Subjective - Subjective Date of Service: 01/15/19 Service Type: 86789 Hosp care 15 min low complexity Assessment - Assessment Inpatient DSM-V Dx: F22 Clinical Impression: Cindy Albert, 38, single, white male is currently living out of his car since September in [place] and is currently diagnosed with delusional disorder with a rule out of bipolar 1 disorder current episode manic. He came to the hospital from [place] [employer] who had been looking for him for at least a week related to his being a nuisance and related to strange behavior. He is now unwelcome on the campus, having been told by the police that he is persona non grata. He is confirmed to never have been enrolled in any program of any type at [facility]. Plan - Plan Treatment Plan: Name: CINDY ALBERT Birthdate: 1980 [id number] We have initiated paliperidone 6mg PO qday per court order. Will consider SAMUEL version of same compound. Continue inpatient treatment and try to find collateral information that would allow us to commence safe discharge planning. Will initiate referral to [facility]. Medications: Current Medications Acetaminophen (Tylenol Tab*) 650 mg PO Q4H PRN PRN Reason: PAIN; OR TEMP >101 Al Hydrox/Mg Hydrox/Simethicone (Maalox Plus*) 30 ml PO Q4H PRN PRN Reason: INDIGESTION Haloperidol Lactate (Haldol Inj Iv/Im*) 5 mg IM DAILY PRN PRN Reason: if patient refuses invega Paliperidone (Invega Er Tab*) 6 mg PO DAILY BRITNI Last Admin: 01/14/19 10:24 Dose: 6 mg
[2019-01-15] MEDS: Paliperidone ER TAB* 6 MG TAB.ER PO SCH (12:38)
--- NOTE | 2019-01-15 15:37 | PN ---
Subjective - Subjective Date of Service: 01/15/19 Service Type: 37639 Hosp care 15 min low complexity Subjective: Patient seen by publications writer for planned absence of attending psychiatrist. Patient pleasant and cooperative in conversation. He inquires about timeline of hospitalization and transfer to [facility] hospital. 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." Objective - General Observations Appearance: Well Groomed Appears Stated Age: Yes Stature: Short Posture: WNL Eye Contact: Intense Behavior/Activity: Peculiar - Interaction Observations Attitude Towards Examiner: Cooperative Stated Mood: Euthymic Affect: Blunted Speech Pattern/Tone: Clear, Appropriate, Normal Volume Thought Process: Tangential Thought Content: Paranoid, Grandiose Thought Process: Lethality: Paranoid Ideation Hallucination Type: Denies Delusion Type: Persecution, Grandeur - Cognitive Function Orientation: A&O x 4 Level of Consciousness: Alert Cognition: WNL Estimated Intelligence: Normal Insight: Difficulty Acknowledging Presence of Psyciatric Problems Judgment Within Normal Limits: No Ability to Make Reasonable Decisions: Serverely Impaired - Medication Compliance Cooperative with Inpatient Medication Regimen: Yes - Group Participation Participates in Group Activities: Yes Assessment - Assessment Merits Inpatient Hospitalization: For Immediate Safety, For Stabilization Inpatient DSM-V Dx: F22 Clinical Impression: Cindy Albert, 38, single, white male is currently living out of his car since September in [place] and is currently diagnosed with delusional disorder with a rule out of bipolar 1 disorder current episode manic. He came to the hospital from [place] [employer] who had been looking for him for at least a week related to his being a nuisance and related to strange behavior. He is now unwelcome on the campus, having been told by the police that he is persona non grata. He is confirmed to never have been enrolled in any program of any type at [facility]. Plan - Plan Treatment Plan: Name: CINDY ALBERT Birthdate: 1980 [id number] Continued Medication Management: Start Medication Medications: Current Medications Acetaminophen (Tylenol Tab*) 650 mg PO Q4H PRN PRN Reason: PAIN; OR TEMP >101 Al Hydrox/Mg Hydrox/Simethicone (Maalox Plus*) 30 ml PO Q4H PRN PRN Reason: INDIGESTION Haloperidol Lactate (Haldol Inj Iv/Im*) 5 mg IM DAILY PRN PRN Reason: if patient refuses invega Paliperidone (Invega Er Tab*) 6 mg PO DAILY [facility] Last Admin: 01/15/19 12:38 Dose: 6 mg - Discharge Plan Discharge Plan: Consider Longer Term Tx Additional Comments: We have initiated paliperidone 6mg PO qday per court order. Will consider SAMUEL version of same compound. Continue inpatient treatment and try to find collateral information that would allow us to commence safe discharge planning. Patient has been referred to [facility].
[2019-01-16] MEDS: Paliperidone ER TAB* 6 MG TAB.ER PO SCH (10:48)
[2019-01-17] MEDS: Paliperidone ER TAB* 6 MG TAB.ER PO SCH (09:43)
[2019-01-18] MEDS: Paliperidone ER TAB* 6 MG TAB.ER PO SCH (09:43)
--- NOTE | 2019-01-18 17:07 | PN ---
Subjective - Subjective Date of Service: 01/18/19 Service Type: 33777 Hosp care 35 min high complexity Subjective: Met with Cindy for extended period to see any improvement he may have made as he is about to be transferred to [facility]. Patient continues to have very poor insight into his mental health problems, doesn't appreciate the need for ongoing treatments and so on. He wants to go back to [facility] to complete his courses that some unidentified peoples have invited him to attend or be discharged to his mom. Denies hallucinations, paranoia SI or HI. Per Nursing reports he hasn't been a management problem. Compliant with court ordered meds so far and tolerating them well. Objective - General Observations Appearance: Well Groomed Appears Stated Age: Yes Stature: Short Posture: WNL Eye Contact: Average Behavior/Activity: WNL - Interaction Observations Attitude Towards Examiner: Cooperative Stated Mood: Dysphoric Affect: Restricted Speech Pattern/Tone: Clear, Appropriate, Normal Volume Thought Process: Coherent, Goal Directed Perception: WNL Thought Content: Preoccupation/Ruminations, Grandiose Hallucination Type: Denies Delusion Type: Grandeur - Cognitive Function Orientation: A&O x 4 Level of Consciousness: Awake, Alert, Appropriate Cognition: WNL Estimated Intelligence: Normal Judgment Within Normal Limits: No Ability to Make Reasonable Decisions: Moderately Impaired - Medication Compliance Cooperative with Inpatient Medication Regimen: Yes - Group Participation Participates in Group Activities: No Assessment - Assessment Merits Inpatient Hospitalization: For Stabilization, Pending Safe DC Plan Inpatient DSM-V Dx: F22 Clinical Impression: Cindy Albert, 38, single, white male is currently living out of his car since September in [place] and is currently diagnosed with delusional disorder with a rule out of bipolar 1 disorder current episode manic. He came to the hospital from [place] [employer] who had been looking for him for at least a week related to his being a nuisance and related to strange behavior. He is now unwelcome on the campus, having been told by the police that he is persona non grata. He is confirmed to never have been enrolled in any program of any type at [facility]. Plan - Plan Treatment Plan: Name: CINDY ALBERT Birthdate: 1980 [id number] Continued Medication Management: Continue Outpt Medication Medications: Current Medications Acetaminophen (Tylenol Tab*) 650 mg PO Q4H PRN PRN Reason: PAIN; OR TEMP >101 Al Hydrox/Mg Hydrox/Simethicone (Maalox Plus*) 30 ml PO Q4H PRN PRN Reason: INDIGESTION Haloperidol Lactate (Haldol Inj Iv/Im*) 5 mg IM DAILY PRN PRN Reason: if patient refuses invega Paliperidone (Invega Er Tab*) 6 mg PO DAILY BRITNI Last Admin: 01/18/19 09:43 Dose: 6 mg - Discharge Plan Discharge Plan: Consider Longer Term Tx - [facility]
[2019-01-19] MEDS: Paliperidone ER TAB* 6 MG TAB.ER PO SCH (11:02)
[2019-01-20] MEDS: Paliperidone ER TAB* 6 MG TAB.ER PO SCH (09:21)
--- NOTE | 2019-01-20 13:27 | PN ---
Subjective - Subjective Date of Service: 01/20/19 Service Type: 08154 Hosp care 15 min low complexity Subjective: Cindy remains delusional and unobtrusive. He is taking and tolerating his court-ordered paliperidone well. He believes [facility] will be a waste of resources because "I'm completely mentally sane...compos mentis." He is alerted that he is leaving for transfer to [facility] tomorrow (01/21) at 13:00 and is not planning to resist this. Objective - General Observations Appearance: Neat Appears Stated Age: Yes Stature: Short Posture: Tense Eye Contact: Intense Behavior/Activity: Peculiar - Interaction Observations Attitude Towards Examiner: Cooperative Stated Mood: Euthymic Affect: Flat Speech Pattern/Tone: Clear Thought Process: Tangential Thought Content: Paranoid, Grandiose Thought Process: Lethality: Paranoid Ideation Hallucination Type: None Delusion Type: Persecution, Grandeur - Cognitive Function Orientation: A&O x 4 Level of Consciousness: Awake Cognition: WNL Estimated Intelligence: Normal Insight: Difficulty Acknowledging Presence of Psyciatric Problems Judgment Within Normal Limits: No Ability to Make Reasonable Decisions: Serverely Impaired - Medication Compliance Cooperative with Inpatient Medication Regimen: Yes - Group Participation Participates in Group Activities: Yes Assessment - Assessment Merits Inpatient Hospitalization: For Immediate Safety, For Stabilization Inpatient DSM-V Dx: F22 Clinical Impression: Cindy Albert, 38, single, white male is currently living out of his car since September in [place] and is currently diagnosed with delusional disorder with a rule out of bipolar 1 disorder current episode manic. He came to the hospital from [place] [employer] who had been looking for him for at least a week related to his being a nuisance and related to strange behavior. He is now unwelcome on the campus, having been told by the police that he is persona non grata. He is confirmed to never have been enrolled in any program of any type at [place]. Plan - Plan Treatment Plan: Name: CINDY ALBERT Birthdate: 1980 [id number] The patient is tolerating paliperidone 6mg PO qday and is pending transfer tomorrow (01/21) to [facility]. Continued Medication Management: Start Medication Medications: Current Medications Acetaminophen (Tylenol Tab*) 650 mg PO Q4H PRN PRN Reason: PAIN; OR TEMP >101 Al Hydrox/Mg Hydrox/Simethicone (Maalox Plus*) 30 ml PO Q4H PRN PRN Reason: INDIGESTION Haloperidol Lactate (Haldol Inj Iv/Im*) 5 mg IM DAILY PRN PRN Reason: if patient refuses invega Paliperidone (Invega Er Tab*) 6 mg PO DAILY BRITNI Last Admin: 01/20/19 09:21 Dose: 6 mg - Discharge Plan Discharge Plan: Consider Longer Term Tx
[2019-01-21 09:00] VITALS: BP 134/90
[2019-01-21] MEDS: Paliperidone ER TAB* 6 MG TAB.ER PO SCH (10:48)
--- NOTE | 2019-01-21 13:45 | DS ---
DISCHARGE SUMMARY: DATE OF ADMISSION: 12/17/18 DATE OF DISCHARGE: 01/21/19 DISCHARGE DIAGNOSES: Winthrop I: Delusional disorder, rule out schizophrenia. Winthrop II: Deferred. CONDITION AT THE TIME OF DISCHARGE: Guarded: Junior remains delusional with poor insight and inability to participate in meaningful and safe discharge planning. 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 We have received collateral information from his aging parents in [place], [place], who indicate that he had his first psychotic break in 2007 in that he has lived itinerant lifestyle going from city to city and generally not being able to take care of himself. The patient has been started on antipsychotic medication with haloperidol 6 mg p.o. daily. Despite tolerating this well, he has not improved enough to where we could formulate a safe discharge plan. For this reason, he is being transferred to the [facility] in [place], [place]. MENTAL STATUS EXAM AT THE TIME OF DISCHARGE: The patient is a young white male , who is of shorter stature with somewhat thinning reddish hair, stands somewhat stiffly with an intense gaze. Speech has a normal rate, tone, and volume and is not particularly spontaneous at this point. Mood is euthymic with a flat affect. Thought process is linear. 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 He denies suicidal or homicidal ideations. He denies auditory or visual hallucinations. Insight and judgment are limited given the fact that he has not acknowledged the presence of the mental illness. Cognitively, he is awake and alert with what would appear to be an average intellect. LABORATORY DATA: Comprehensive metabolic testing was performed on 12/28/18 revealing a hemoglobin A1c of 5.4, triglycerides 249, cholesterol 285, LDL cholesterol 184, HDL cholesterol 51.2. DISCHARGE INSTRUCTIONS: To the patient are as follows: Part A: Medications: He is on haloperidol 6 mg p.o. daily. Part B: Diet is regular. Part C: Activities: As per [facility] protocol. The patient is a nonsmoker. There are no laboratory or diagnostic studies pending at the time of discharge. Part D: Followup care: The patient will be a direct referral to further inpatient services at the [facility]. There they will be responsible for whatever mental health followups are necessary at the time of discharge from that facility. Part E: Substance abuse followup is not applicable. Part F: Disposition. The patient is discharged to the [facility], which is a state psychiatric facility. HOSPITAL COURSE: Part A: Reason for admission: The patient is a 38-year-old single white male with a history of psychotic illness, who was brought in by [place] [employer] on a 9.41 legal status due to disruptive stalking behavior, as well as delusions of grandeur, hyperreligiosity, and hypersexuality. Junior stated at that time that he has been in the area since September taking courses at [employer]. This was disputed by [employer] [employer] [facility] stating that he is an intruder on their property and he has been designated as a persona non grata on the campus. 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 They note that they have been trying for several weeks to apprehend him due to concerning reports from the student body. At one point, he evaded them by darting into traffic and he could not provide them with a coherent history upon his gradual apprehension, and he was therefore taken to the hospital for further evaluation. 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 Part B: Psychiatric treatment rendered: The patient was admitted to the adult behavioral health unit and placed on a 9.39 involuntary legal status. Initially , he was treated by psychiatric nurse practitioner, Chelsi Stoddard. However, he steadfastly refused to take any antipsychotic treatment and was therefore transferred to the care of Dr. Mc Ryan. At that time, we took him to court for treatment over his objection and the hospital was granted an order by the [facility] to treat Mr. Albert with involuntary medications. We started him on a trial of Invega 6 mg daily, which he tolerated well. We noted that his delusional material became less overt. However, when we tried to safety plan with him, he was unable to cooperate with this. Initially, he was reluctant to give release to contact collateral information, but he did give us the name of a former psychiatrist, named Chava Chavarria in [facility]. The notes from Dr. Chavarria indicated that Junior had been seen for about a year from 2015 to 2016 and was delusional and had problematic behaviors at [facility] such as stalking and making inappropriate advances at female staff and peers. Thereafter, Junior gave us collateral information and contact numbers for his parents who live in the [facility]. They note that Junior's first psychotic break was in 2007 and that he has at times stayed in contact with them but other times tends to disappear and they will only hear from him once every several months. They were grateful for his hospitalization and were supportive of the eventual plan of sending Junior to a state psychiatric facility. We did not feel that Junior could participate in meaningful discharge planning, and for this reason, we are sending him for further care at [facility] where he is now accepted and pending transfer. [id number]/[facility] #: [id number] CALOS
== END 2019-01-21 12:00 | DRG 885 ==
LOC: ED 21:46 → BSU 12-17 02:33
PROVIDERS: ADMIT Psychiatry & Neurology Psychiatry; ATTEND Psychiatry & Neurology Psychiatry
PROC: GZHZZZZ Group Psychotherapy (ICD-10-PCS; principal; 2018-12-31)
DX: F20.9 Schizophrenia, unspecified (principal); Z81.1 Family history of alcohol abuse and dependence; Z59.0 Homelessness
CPT/HCPCS: 36415; 80053; 80061; 80307; 80320; 80329; 81003; 81015; 83036; 84443; 85025; 87086; 90853; 93005; 99222; 99231; 99232; 99238; 99284; A9270-GY; G0480